=== PATIENT | female | born 1995 | race Caucasian/White ===

== ENCOUNTER 2018-07-17 22:07 | Outpatient (CLI) | payer OTHER, MEDICAID ==
[2018-07-17 23:09] LABS: ADD UMIC YES; UR ASCORBIC ACID NEGATIVE (NEGATIVE); UR BILIRUBIN (Dip) NEGATIVE (NEGATIVE); UR BLOOD (Dip) NEGATIVE (NEGATIVE); UR CLARITY CLOUDY (CLEAR); UR COLOR YELLOW (YELLOW); UR GLUCOSE (Dip) NEGATIVE (NEGATIVE); UR KETONES (Dip) NEGATIVE (NEGATIVE); UR LEUKOCYTE ESTERASE (Dip) 1+ Leu/ul (NEGATIVE); UR MUCUS FEW /HPF (NONE SEEN); UR NITRITE (Dip) NEGATIVE (NEGATIVE); UR RBC 1 /HPF (0-5); UR SPECIFIC GRAVITY (Dip) 1.026 (1.003-1.030); UR SQUAMOUS EPITHELIAL CELL MANY /HPF (FEW); UR TOTAL PROTEIN (Dip) NEGATIVE (NEGATIVE); UR UROBILINOGEN (Dip) 2+ mg/dL (NEGATIVE); UR WBC 13 /HPF (0-5)
== END 2018-07-18 00:51 | disposition home or self-care (01) ==
LOC: OBT 22:07 → L-D 22:08
DX: O26.892 Other specified pregnancy related conditions, second trimester (principal); R10.2 Pelvic and perineal pain; Z3A.23 23 weeks gestation of pregnancy
CPT/HCPCS: 76815; 76817; 81001

== ENCOUNTER 2018-08-13 01:14 | Outpatient (CLI) | payer OTHER | END 2018-08-13 04:17 | disposition home or self-care (01) | LOC: OBT 01:14 → L-D 01:15 → OBT 04:17 | DX: O26.892 Other specified pregnancy related conditions, second trimester (principal); N93.0 Postcoital and contact bleeding; Z3A.27 27 weeks gestation of pregnancy | CPT/HCPCS: 76815; 76817; 76818; 86850; 86900; 86901 ==

== ENCOUNTER 2018-10-12 02:00 | Outpatient (CLI) | payer OTHER ==
[2018-10-12 04:32] LABS: RUPTURE FETAL MEMBRANES NEGATIVE (NEGATIVE)
== END 2018-10-12 04:53 | disposition home or self-care (01) ==
LOC: OBT 02:00 → L-D 02:00 → OBT 04:53
DX: O42.913 Preterm premature rupture of membranes, unspecified as to length of time between rupture and onset of labor, third trimester (principal); Z3A.36 36 weeks gestation of pregnancy
CPT/HCPCS: 76815; 76818; 84112

== ENCOUNTER 2018-10-18 21:08 | Inpatient (IN) | payer OTHER ==
[2018-10-18 23:08] LABS: RUPTURE FETAL MEMBRANES NEGATIVE (NEGATIVE)
[2018-10-19] MEDS ORDERED: LACTATED RINGER'S 1,000 ML IV (00:29)
[2018-10-19] MEDS: LACTATED RINGER'S 1,000 ML IV ×2 (01:17→09:04)
[2018-10-19] MEDS: PRENATAL VITAMIN PO (09:04)
[2018-10-19] MEDS: FERROUS SULFATE (EC) 325 MG TAB PO (09:04)
== END 2018-10-19 23:05 | disposition home or self-care (01) | DRG 833 ==
LOC: OBT 21:08 → L-D 21:09 → PP1 10-19 03:45 → L-D 21:29
PROVIDERS: Specialist
DX: O36.8130 Decreased fetal movements, third trimester, not applicable or unspecified (principal); Z3A.37 37 weeks gestation of pregnancy
CPT/HCPCS: 76818; 84112

== ENCOUNTER 2018-10-21 11:51 | Outpatient (CLI) | payer OTHER | END 2018-10-21 15:15 | disposition home or self-care (01) | LOC: OBT 11:51 → L-D 11:52 → OBT 15:15 | DX: O41.03X0 Oligohydramnios, third trimester, not applicable or unspecified (principal); Z3A.37 37 weeks gestation of pregnancy | CPT/HCPCS: 76818 ==

== ENCOUNTER 2018-10-27 19:35 | Outpatient (CLI) | payer OTHER | END 2018-10-27 21:43 | disposition home or self-care (01) | LOC: OBT 19:35 → L-D 19:35 → OBT 21:43 | DX: O41.03X0 Oligohydramnios, third trimester, not applicable or unspecified (principal); Z3A.38 38 weeks gestation of pregnancy | CPT/HCPCS: 76818 ==